=== PATIENT | male | born 1940 | race Caucasian/White ===

== ENCOUNTER 2016-11-26 11:01 | Emergency (ER) | payer MEDICARE ==
[2016-11-26] MEDS ORDERED: NORCO, ANEXSIA 5/325MG TABLET (HYDROcodone/ACETAMINOPHEN) As Ordered ONE (13:18)
[2016-11-26] MEDS ORDERED: ONDANSETRON 4 MG ORAL DISINTEGRATING TAB (S0181) As Ordered ONE (13:19)
--- NOTE | 2016-11-26 15:23 | REP ---
MRI LUMBAR SPINE WITHOUT CONTRAST: HISTORY: Back pain. Decreased signal intensity on T2-weighted images is present in the lumbar intervertebral discs. The discs are decreased in height. These findings are consistent with disc degeneration. A diffuse disc bulge is present at the L1-2 level. There is minimal compression of thecal sac. There is hypertrophy of the posterior articulating facets. The L1 nerves exit the neural foramina without compression. A diffuse disc bulge is present at the L2-3 level. There is minimal compression of the thecal sac. There is hypertrophy of the posterior articulating facts. The L2 nerves exit the neural foramina without compression. A diffuse disc bulge is present at the L3-4 level. There is hypertrophy of the ligamenta flava and posterior articulating facets. These findings produce mild central canal stenosis. There is posterolateral displacement of the right L3 nerve in the distal neural foramen. The left L3 nerve exits the neural foramen without compression. A diffuse disc bulge is present at the L4-5 level. There is hypertrophy of the ligamenta flava and posterior articulating facets. A 3 mm synovial cyst is present medial to the left L4-5 facet joint. These findings produce mild central canal stenosis. The L4 nerves exit the neural foramina without compression. A diffuse disc bulge is present at the L5-S1 level. There is minimal compression of the thecal sac. There is hypertrophy of the posterior articulating facets. There is compression of the L5 nerves in the neural foramina. The conus medullaris is normal in appearance terminating at the level of the T12-L1 intervertebral disc. Increased signal intensity is present in the endplates of the L3 and L4 vertebral bodies. This represents degenerative change. IMPRESSION: 1. Diffuse disc bulges at the L1-2, L2-3 and L5-S1 levels with minima thecal sac compression. There is compression of the L5 nerves in the neural foramina. 2. Mild central canal stenosis at the L3-4 level secondary to disc bulge, ligamentous and facet hypertrophy. 3. Mild central canal stenosis at the L4-5 level secondary to disc bulge, ligamentous and facet hypertrophy and a left synovial cyst. Signed by Andriy Hearn MD 11/26/2016 03:26 P
--- NOTE | 2016-11-26 16:06 | EDDOCDS ---
Nurse's Notes [facility] Name: Krunal Fofana Age: 76 yrs Sex: Male : 1940 Arrival Date: 11/26/2016 Time: 11:01 Bed TR7 Private MD: Alejandro Hunt A. 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 Pt denies actually falling denies bowel or bladder problems. Adult Sepsis Screening: The patient does not have new or worsening altered mentation. Patient's respiratory rate is less than 22. Systolic blood pressure is greater than 100. Patient has a qSOFA score of 0- Negative Sepsis Screen. Suicide/Homicide risk assessment- the patient denies having any suicidal and/or homicidal ideations and does not present with any other emotional, behavioral or mental health complaints. Status: Patient is not a food service worker hospital or dependent. Transition of care: patient was not received from another setting of care. 11:06 Acuity: ERNIE Level 3 dls 11:06 Method Of Arrival: Wheelchair dls Triage Assessment: 11:11 General: Appears uncomfortable, well developed, well nourished, well groomed, Behavior dls is cooperative. Pain: Pain currently is 6 out of 10 on a pain scale. Historical: - Allergies: no known allergies; - Home Meds: 1. Janumet XR oral Unknown oral 1 tab once daily 2. lisinopril 5 mg Oral tab 1 tab once daily 3. metformin 1,000 mg Oral tr24 1 tab once daily 4. lovastatin 20 mg Oral tab 1 tab once daily 5. aspirin 81 mg Oral tab 1 tab once daily 6. Eye Vitamin and Minerals 7,160-113-100 [id number] oral tab daily - PMHx: Diabetes - NIDDM: controlled; - PSHx: Tonsillectomy; - Social history: Smoking status: Patient uses tobacco products, light tobacco smoker. No barriers to communication noted, The patient speaks fluent Welsh. - Family history: Not pertinent. - : The pt / caregiver states he / she is not on anticoagulants. Home medication list is obtained from the patient. - Exposure Risk Screening:: None identified. Screenin:26 Screening information is obtained from the patient. Fall risk: At risk due to gait mk4 disturbance. Assistance ADL's: Requires assistance with. Abuse/DV Screen: The patient / caregiver reports he/she is: not in a situation that causes fear, pain or injury. Nutritional screening: No deficits noted. Advance Directives: Currently, there is no health care proxy. There is no active DNR order. There is no living will. There is no Power of Broadcast Operations Manager. Advance directive information has not previously been placed in an [facility] medical record. Further advance directive information is declined. home support is adequate. Assessment: 12:02 General: Appears uncomfortable. Pain: Location: left lower back and left gluteus mk4 rekha Pain radiates to lateral aspect of left thigh, lateral aspect of left knee and medial aspect of left thigh Pain began a week ago after strenuous lifting, getting worse. Neurological: Level of Consciousness is awake, alert. Respiratory: Airway is patent 13:42 General: Appears in no apparent distress, transferred to [facility] via w/c . [facility] 15:26 General: Appears in no apparent distress, was able to stand on left leg to transfer to [facility] bathroom, pt states pain improved left lower back and down left leg. Vital Signs: 11:02 BP 174 / 78; Pulse 94; Resp 18; Temp 97.6(O); Pulse Ox 97% on R/A; Weight 79.38 kg (R); ct3 Height 5 ft. 10 in. (177.80 cm) (R); Pain 7/10; 15:41 BP 147 / 72; Pulse 82; Resp 18; Temp 97.3(O); Pulse Ox 98% on R/A; Pain 2/10; ct3 11:02 Body Mass Index 25.11 (79.38 kg, 177.80 cm) ct3 ED Course: 11:02 Patient visited by Lay Ashraf PCA. ct3 11:02 Alejandro Hunt is Private Physician. ct3 11:02 Patient moved to Waiting ct3 11:03 Patient moved to Pre RCE ct3 11:08 Triage Initiated dls 12:02 Patient visited by Sara Kimbrough RN. mk4 12:02 Patient moved to Triage 1 [facility] 13:05 Jono Franco PA-C is PHCP. cc10 13:05 Della Denton MD is Attending Physician. cc10 13:05 Patient visited by Jono Franco PA-C. cc10 13:05 Patient visited by Jono Franco PA-C. cc10 13:07 [facility] Payment Agreement was scanned into [employer] and attached to record. mm15 13:12 Patient moved to PD2 mk4 13:38 Patient visited by Sara Kimbrough RN. mk4 14:27 Patient name changed from Hector\S\\S\Fofana\S\ to Hector\S\ \S\Fofana. EDMS 14:32 Patient visited by Sara Kimbrough RN. mk4 14:32 Patient moved to MRI mk4 14:51 Patient visited by Sara Kimbrough RN. mk4 14:52 Patient moved to PD2 mk4 15:25 Patient visited by Sara Kimbrough RN. mk4 15:32 -MRI-Spine, Lumbar without contrast Returned. EDMS 15:36 Lydia Heck is Referral Physician. cc10 15:37 Alejandro Hunt is Referral Physician. cc10 15:42 Patient visited by Lay Ashraf PCA. ct3 15:50 Patient moved to [address] Administered Medications: 13:21 Drug: Ondansetron ODT 4 mg [ondansetron 4 mg disintegrating tablet (1 tabs)] Route: PO; mk4 13:22 Drug: HYDROcodone-acetaminophen 1 tabs [hydrocodone 5 mg-acetaminophen 325 mg tablet (1 mk4 tabs)] Route: PO; Order Results: Radiology Order: -MRI-Spine, Lumbar without contrast Test: -MRI-Spine, Lumbar without contrast REASON FOR EXAMINATION: LBP, leg numbness; MRI LUMBAR SPINE WITHOUT CONTRAST:; ; HISTORY: Back pain.; ; Decreased signal intensity on T2-weighted images is present in the lumbar; intervertebral discs. The discs are decreased in height. These findings are; consistent with disc degeneration.; ; A diffuse disc bulge is present at the L1-2 level. There is minimal compression; of thecal sac. There is hypertrophy of the posterior articulating facets. The L1; nerves exit the neural foramina without compression.; ; A diffuse disc bulge is present at the L2-3 level. There is minimal compression; of the thecal sac. There is hypertrophy of the posterior articulating facts. The; L2 nerves exit the neural foramina without compression.; ; A diffuse disc bulge is present at the L3-4 level. There is hypertrophy of the; ligamenta flava and posterior articulating facets. These findings produce mild; central canal stenosis. There is posterolateral displacement of the right L3; nerve in the distal neural foramen. The left L3 nerve exits the neural foramen; without compression.; ; A diffuse disc bulge is present at the L4-5 level. There is hypertrophy of the; ligamenta flava and posterior articulating facets. A 3 mm synovial cyst is; present medial to the left L4-5 facet joint. These findings produce mild central; canal stenosis. The L4 nerves exit the neural foramina without compression.; ; A diffuse disc bulge is present at the L5-S1 level. There is minimal compression; of the thecal sac. There is hypertrophy of the posterior articulating facets.; There is compression of the L5 nerves in the neural foramina.; ; The conus medullaris is normal in appearance terminating at the level of the; T12-L1 intervertebral disc. Increased signal intensity is present in the; endplates of the L3 and L4 vertebral bodies. This represents degenerative; change.; ; IMPRESSION:; ; 1. Diffuse disc bulges at the L1-2, L2-3 and L5-S1 levels with minima thecal sac; compression. There is compression of the L5 nerves in the neural foramina.; ; 2. Mild central canal stenosis at the L3-4 level secondary to disc bulge,; ligamentous and facet hypertrophy.; ; 3. Mild central canal stenosis at the L4-5 level secondary to disc bulge,; ligamentous and facet hypertrophy and a left synovial cyst.; ; ; ; Unreviewed; Outcome: 15:37 Discharge ordered by Provider. cc10 16:05 Patient left the ED. mk4 Signatures: Dispatcher [employer] Ayla Lou RN RN kcs Scott, Debra, RN RN dls Lay Ashraf, PRAMOD ENVELOPE FOLDING MACHINE ADJUSTER ct3 Tanya Machado mm15 Sara Kimbrough RN RN mk4 Jono Franco, PA-C PA-C cc10 Corrections: (The following items were deleted from the chart) 14:40 13:42 General: Appears uncomfortable, mk4 mk4 JAGDISHD
--- NOTE | 2016-11-26 16:06 | EDDOCDS ---
Physician Documentation [facility] Name: Krunal Fofana Age: 76 yrs Sex: Male : 1940 Arrival Date: 11/26/2016 Time: 11:01 Bed TR7 Private MD: Alejandro Hunt A. Disposition: 11/26/16 15:37 Discharged to Home/Self Care. Impression: Intervertebral disc disorders with radiculopathy, lumbosacral region - L5. - Condition is Stable. - Discharge Instructions: Herniated Disk, Lumbosacral Radiculopathy. - Prescriptions for Hydrocodone- Acetaminophen 5-325 mg Oral Tablet - take 1 tablet by ORAL route every 6 hours As needed MDD: 4 tabs; 12 tablet. - Medication Reconciliation form. - Follow up: Lydia Heck; When: Call to arrange an appointment; Reason: Wound/Symptom Recheck, Recheck today's complaints, Worsening of conditions, Continuance of care. Follow up: Alejandro Hunt; When: 2 - 3 days; Reason: Wound/Symptom Recheck, Recheck today's complaints, Worsening of conditions, Continuance of care. - Problem is an ongoing problem. - Symptoms have improved. Historical: - Allergies: no known allergies; - Home Meds: 1. Janumet XR oral Unknown oral 1 tab once daily 2. lisinopril 5 mg Oral tab 1 tab once daily 3. metformin 1,000 mg Oral tr24 1 tab once daily 4. lovastatin 20 mg Oral tab 1 tab once daily 5. aspirin 81 mg Oral tab 1 tab once daily 6. Eye Vitamin and Minerals 7,160-113-100 [id number] oral tab daily - PMHx: Diabetes - NIDDM: controlled; - PSHx: Tonsillectomy; - Social history: Smoking status: Patient uses tobacco products, light tobacco smoker. No barriers to communication noted, The patient speaks fluent Hungarian. - Family history: Not pertinent. - : The pt / caregiver states he / she is not on anticoagulants. Home medication list is obtained from the patient. - Exposure Risk Screening:: None identified. Vital Signs: 11/26 11:02 BP 174 / 78; Pulse 94; Resp 18; Temp 97.6(O); Pulse Ox 97% on R/A; Weight 79.38 kg / ct3 175 lbs (R); Height 5 ft. 10 in. (177.80 cm) (R); Pain 7/10; 15:41 BP 147 / 72; Pulse 82; Resp 18; Temp 97.3(O); Pulse Ox 98% on R/A; Pain 2/10; ct3 11:02 Body Mass Index 25.11 (79.38 kg, 177.80 cm) ct3 MDM: 13:07 Financial registration complete. mm15 13:07 [facility] Payment Agreement was scanned into [employer] and attached to record. mm15 13:14 MRI Screening Tool - Place on chart, inform RN ordered. cc10 13:14 HYDROcodone-acetaminophen 5 mg-325 mg 1 tabs PO once ordered. cc10 13:15 Ondansetron ODT Oral Disintegrating Tablet 4 mg PO once ordered. cc10 13:15 -MRI-Spine, Lumbar without contrast Ordered. EDMS 13:19 MRI Screening Tool - Place on chart, inform RN complete. ct3 Administered Medications: 13:21 Drug: Ondansetron ODT 4 mg [ondansetron 4 mg disintegrating tablet (1 tabs)] Route: PO; mk4 13:22 Drug: HYDROcodone-acetaminophen 1 tabs [hydrocodone 5 mg-acetaminophen 325 mg tablet (1 mk4 tabs)] Route: PO; Signatures: Dispatcher [employer] EDMS Moni Aldrich, RN RN dls Lay Ashraf, THREAD TWISTER THREAD TWISTER ct3 Tanya Machado mm15 Sara Kimbrough RN RN mk4 Jono Franco, PA-C PA-C cc10 The chart was reviewed and I authenticate all verbal orders and agree with the evaluation and treatment provided.Attachments: 13:07 [facility] Payment Agreement mm15 MTDD
--- NOTE | 2016-11-28 17:06 | EDDOCDS ---
Nurse's Notes [facility] Name: Krunal Fofana Age: 76 yrs Sex: Male : 1940 Arrival Date: 11/26/2016 Time: 11:01 Bed TR7 Private MD: Alejandro Hunt A. 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 Pt denies actually falling denies bowel or bladder problems. Adult Sepsis Screening: The patient does not have new or worsening altered mentation. Patient's respiratory rate is less than 22. Systolic blood pressure is greater than 100. Patient has a qSOFA score of 0- Negative Sepsis Screen. Suicide/Homicide risk assessment- the patient denies having any suicidal and/or homicidal ideations and does not present with any other emotional, behavioral or mental health complaints. Status: Patient is not a technical services assistant or dependent. Transition of care: patient was not received from another setting of care. 11:06 Acuity: ERNIE Level 3 dls 11:06 Method Of Arrival: Wheelchair dls Triage Assessment: 11:11 General: Appears uncomfortable, well developed, well nourished, well groomed, Behavior dls is cooperative. Pain: Pain currently is 6 out of 10 on a pain scale. Historical: - Allergies: no known allergies; - Home Meds: 1. Janumet XR oral Unknown oral 1 tab once daily 2. lisinopril 5 mg Oral tab 1 tab once daily 3. metformin 1,000 mg Oral tr24 1 tab once daily 4. lovastatin 20 mg Oral tab 1 tab once daily 5. aspirin 81 mg Oral tab 1 tab once daily 6. Eye Vitamin and Minerals 7,160-113-100 [id number]-il-[id number] oral tab daily - PMHx: Diabetes - NIDDM: controlled; - PSHx: Tonsillectomy; - Social history: Smoking status: Patient uses tobacco products, light tobacco smoker. No barriers to communication noted, The patient speaks fluent Bruneian. - Family history: Not pertinent. - : The pt / caregiver states he / she is not on anticoagulants. Home medication list is obtained from the patient. - Exposure Risk Screening:: None identified. Screenin:26 Screening information is obtained from the patient. Fall risk: At risk due to gait mk4 disturbance. Assistance ADL's: Requires assistance with. Abuse/DV Screen: The patient / caregiver reports he/she is: not in a situation that causes fear, pain or injury. Nutritional screening: No deficits noted. Advance Directives: Currently, there is no health care proxy. There is no active DNR order. There is no living will. There is no Power of Fixing Machine Operator. Advance directive information has not previously been placed in an [facility] medical record. Further advance directive information is declined. home support is adequate. Assessment: 12:02 General: Appears uncomfortable. Pain: Location: left lower back and left gluteus mk4 rekha Pain radiates to lateral aspect of left thigh, lateral aspect of left knee and medial aspect of left thigh Pain began a week ago after strenuous lifting, getting worse. Neurological: Level of Consciousness is awake, alert. Respiratory: Airway is patent 13:42 General: Appears in no apparent distress, transferred to [facility] via w/c . [facility] 15:26 General: Appears in no apparent distress, was able to stand on left leg to transfer to [facility] bathroom, pt states pain improved left lower back and down left leg. Vital Signs: 11:02 BP 174 / 78; Pulse 94; Resp 18; Temp 97.6(O); Pulse Ox 97% on R/A; Weight 79.38 kg (R); ct3 Height 5 ft. 10 in. (177.80 cm) (R); Pain 7/10; 15:41 BP 147 / 72; Pulse 82; Resp 18; Temp 97.3(O); Pulse Ox 98% on R/A; Pain 2/10; ct3 11:02 Body Mass Index 25.11 (79.38 kg, 177.80 cm) ct3 ED Course: 11:02 Patient visited by Lay Ashraf PCA. ct3 11:02 Alejandro Hunt is Private Physician. ct3 11:02 Patient moved to Waiting ct3 11:03 Patient moved to Pre RCE ct3 11:08 Triage Initiated dls 12:02 Patient visited by Sara Kimbrough RN. mk4 12:02 Patient moved to Triage 1 [facility] 13:05 Jono Franco PA-C is PHCP. cc10 13:05 Della Denton MD is Attending Physician. cc10 13:05 Patient visited by Jono Franco PA-C. cc10 13:05 Patient visited by Jono Franco PA-C. cc10 13:07 [facility] Payment Agreement was scanned into [employer] and attached to record. mm15 13:12 Patient moved to PD mk4 13:38 Patient visited by Sara Kimbrough RN. mk4 14:27 Patient name changed from Hector\S\\S\Fofana\S\ to Hector\S\ \S\Fofana. EDMS 14:32 Patient visited by Sara Kimbrough RN. mk4 14:32 Patient moved to MRI mk4 14:51 Patient visited by Sara Kimbrough RN. mk4 14:52 Patient moved to PD mk4 15:25 Patient visited by Sara Kimbrough RN. mk4 15:32 -MRI-Spine, Lumbar without contrast Returned. EDMS 15:36 Lydia Heck is Referral Physician. cc10 15:37 Alejandro Hunt is Referral Physician. cc10 15:42 Patient visited by Lay Ashraf PCA. ct3 15:50 Patient moved to [address] 11/27 14:06 T-Sheet-- Draft Copy was scanned into [employer] and attached to record. gb Administered Medications: 11/26 13:21 Drug: Ondansetron ODT 4 mg [ondansetron 4 mg disintegrating tablet (1 tabs)] Route: PO; mk4 13:22 Drug: HYDROcodone-acetaminophen 1 tabs [hydrocodone 5 mg-acetaminophen 325 mg tablet (1 mk4 tabs)] Route: PO; Order Results: Radiology Order: -MRI-Spine, Lumbar without contrast Test: -MRI-Spine, Lumbar without contrast REASON FOR EXAMINATION: LBP, leg numbness; MRI LUMBAR SPINE WITHOUT CONTRAST:; ; HISTORY: Back pain.; ; Decreased signal intensity on T2-weighted images is present in the lumbar; intervertebral discs. The discs are decreased in height. These findings are; consistent with disc degeneration.; ; A diffuse disc bulge is present at the L1-2 level. There is minimal compression; of thecal sac. There is hypertrophy of the posterior articulating facets. The L1; nerves exit the neural foramina without compression.; ; A diffuse disc bulge is present at the L2-3 level. There is minimal compression; of the thecal sac. There is hypertrophy of the posterior articulating facts. The; L2 nerves exit the neural foramina without compression.; ; A diffuse disc bulge is present at the L3-4 level. There is hypertrophy of the; ligamenta flava and posterior articulating facets. These findings produce mild; central canal stenosis. There is posterolateral displacement of the right L3; nerve in the distal neural foramen. The left L3 nerve exits the neural foramen; without compression.; ; A diffuse disc bulge is present at the L4-5 level. There is hypertrophy of the; ligamenta flava and posterior articulating facets. A 3 mm synovial cyst is; present medial to the left L4-5 facet joint. These findings produce mild central; canal stenosis. The L4 nerves exit the neural foramina without compression.; ; A diffuse disc bulge is present at the L5-S1 level. There is minimal compression; of the thecal sac. There is hypertrophy of the posterior articulating facets.; There is compression of the L5 nerves in the neural foramina.; ; The conus medullaris is normal in appearance terminating at the level of the; T12-L1 intervertebral disc. Increased signal intensity is present in the; endplates of the L3 and L4 vertebral bodies. This represents degenerative; change.; ; IMPRESSION:; ; 1. Diffuse disc bulges at the L1-2, L2-3 and L5-S1 levels with minima thecal sac; compression. There is compression of the L5 nerves in the neural foramina.; ; 2. Mild central canal stenosis at the L3-4 level secondary to disc bulge,; ligamentous and facet hypertrophy.; ; 3. Mild central canal stenosis at the L4-5 level secondary to disc bulge,; ligamentous and facet hypertrophy and a left synovial cyst.; ; ; Signed by; Andriy Hearn MD 11/26/2016 03:26 P; Outcome: 15:37 Discharge ordered by Provider. cc10 16:05 Patient left the ED. mk4 Signatures: Dispatcher [employer] EDMS Ayla Garrison RN RN kcs Scott, Debra, RN RN dls Barnhardt, Gloria, Lay Peterson, CUSTOMER PROJECT MANAGER CUSTOMER PROJECT MANAGER ct3 Tanya Machado mm15 Sara Kimbrough, RN RN mk4 Jono Franco, ABDOULAYEC PAToniC cc10 Corrections: (The following items were deleted from the chart) 14:40 13:42 General: Appears uncomfortable, triston mk4 Chart Complete MTDD
--- NOTE | 2016-11-28 17:06 | EDDOCDS ---
Physician Documentation [facility] Name: Krunal Fofana Age: 76 yrs Sex: Male : 1940 Arrival Date: 11/26/2016 Time: 11:01 Bed TR7 Private MD: Alejandro Hunt A. Disposition: 11/26/16 15:37 Discharged to Home/Self Care. Impression: Intervertebral disc disorders with radiculopathy, lumbosacral region - L5. - Condition is Stable. - Discharge Instructions: Herniated Disk, Lumbosacral Radiculopathy. - Prescriptions for Hydrocodone- Acetaminophen 5-325 mg Oral Tablet - take 1 tablet by ORAL route every 6 hours As needed MDD: 4 tabs; 12 tablet. - Medication Reconciliation form. - Follow up: Lydia Heck; When: Call to arrange an appointment; Reason: Wound/Symptom Recheck, Recheck today's complaints, Worsening of conditions, Continuance of care. Follow up: Alejandro Hunt; When: 2 - 3 days; Reason: Wound/Symptom Recheck, Recheck today's complaints, Worsening of conditions, Continuance of care. - Problem is an ongoing problem. - Symptoms have improved. Historical: - Allergies: no known allergies; - Home Meds: 1. Janumet XR oral Unknown oral 1 tab once daily 2. lisinopril 5 mg Oral tab 1 tab once daily 3. metformin 1,000 mg Oral tr24 1 tab once daily 4. lovastatin 20 mg Oral tab 1 tab once daily 5. aspirin 81 mg Oral tab 1 tab once daily 6. Eye Vitamin and Minerals 7,160-113-100 [id number] oral tab daily - PMHx: Diabetes - NIDDM: controlled; - PSHx: Tonsillectomy; - Social history: Smoking status: Patient uses tobacco products, light tobacco smoker. No barriers to communication noted, The patient speaks fluent Albanian. - Family history: Not pertinent. - : The pt / caregiver states he / she is not on anticoagulants. Home medication list is obtained from the patient. - Exposure Risk Screening:: None identified. Vital Signs: 11/26 11:02 BP 174 / 78; Pulse 94; Resp 18; Temp 97.6(O); Pulse Ox 97% on R/A; Weight 79.38 kg / ct3 175 lbs (R); Height 5 ft. 10 in. (177.80 cm) (R); Pain 7/10; 15:41 BP 147 / 72; Pulse 82; Resp 18; Temp 97.3(O); Pulse Ox 98% on R/A; Pain 2/10; ct3 11:02 Body Mass Index 25.11 (79.38 kg, 177.80 cm) ct3 MDM: 13:07 Financial registration complete. mm15 13:07 [facility] Payment Agreement was scanned into [employer] and attached to record. mm15 13:14 MRI Screening Tool - Place on chart, inform RN ordered. cc10 13:14 HYDROcodone-acetaminophen 5 mg-325 mg 1 tabs PO once ordered. cc10 13:15 Ondansetron ODT Oral Disintegrating Tablet 4 mg PO once ordered. cc10 13:15 -MRI-Spine, Lumbar without contrast Ordered. EDMS 13:19 MRI Screening Tool - Place on chart, inform RN complete. ct3 11/27 14:06 T-Sheet-- Draft Copy was scanned into [employer] and attached to record. gb Administered Medications: 11/26 13:21 Drug: Ondansetron ODT 4 mg [ondansetron 4 mg disintegrating tablet (1 tabs)] Route: PO; mk4 13:22 Drug: HYDROcodone-acetaminophen 1 tabs [hydrocodone 5 mg-acetaminophen 325 mg tablet (1 mk4 tabs)] Route: PO; Signatures: Dispatcher [employer] EDMS Moni Aldrich RN RN dls Joan Miller, Reg Reg gb Pascale, Lay, SERVICE CORRESPONDENT SERVICE CORRESPONDENT ct3 Tanya Machado mm15 Sara Kimbrough RN RN mk4 Jono Franco PA-C PAYandel cc10 The chart was reviewed and I authenticate all verbal orders and agree with the evaluation and treatment provided.Attachments: 13:07 [facility] Payment Agreement mm15 11/27 14:06 T-Sheet-- Draft Copy gb Chart Complete MTDD
--- NOTE | 2016-11-28 17:06 | EDDOCDS ---
Physician Documentation [facility] Name: Krunal Fofana Age: 76 yrs Sex: Male : 1940 Arrival Date: 11/26/2016 Time: 11:01 Bed TR7 Private MD: Alejandro Hunt A. Disposition: 11/26/16 15:37 Discharged to Home/Self Care. Impression: Intervertebral disc disorders with radiculopathy, lumbosacral region - L5. - Condition is Stable. - Discharge Instructions: Herniated Disk, Lumbosacral Radiculopathy. - Prescriptions for Hydrocodone- Acetaminophen 5-325 mg Oral Tablet - take 1 tablet by ORAL route every 6 hours As needed MDD: 4 tabs; 12 tablet. - Medication Reconciliation form. - Follow up: Lydia Heck; When: Call to arrange an appointment; Reason: Wound/Symptom Recheck, Recheck today's complaints, Worsening of conditions, Continuance of care. Follow up: Alejandro Hunt; When: 2 - 3 days; Reason: Wound/Symptom Recheck, Recheck today's complaints, Worsening of conditions, Continuance of care. - Problem is an ongoing problem. - Symptoms have improved. Historical: - Allergies: no known allergies; - Home Meds: 1. Janumet XR oral Unknown oral 1 tab once daily 2. lisinopril 5 mg Oral tab 1 tab once daily 3. metformin 1,000 mg Oral tr24 1 tab once daily 4. lovastatin 20 mg Oral tab 1 tab once daily 5. aspirin 81 mg Oral tab 1 tab once daily 6. Eye Vitamin and Minerals 7,160-113-100 [id number] oral tab daily - PMHx: Diabetes - NIDDM: controlled; - PSHx: Tonsillectomy; - Social history: Smoking status: Patient uses tobacco products, light tobacco smoker. No barriers to communication noted, The patient speaks fluent Slovak. - Family history: Not pertinent. - : The pt / caregiver states he / she is not on anticoagulants. Home medication list is obtained from the patient. - Exposure Risk Screening:: None identified. Vital Signs: 11/26 11:02 BP 174 / 78; Pulse 94; Resp 18; Temp 97.6(O); Pulse Ox 97% on R/A; Weight 79.38 kg / ct3 175 lbs (R); Height 5 ft. 10 in. (177.80 cm) (R); Pain 7/10; 15:41 BP 147 / 72; Pulse 82; Resp 18; Temp 97.3(O); Pulse Ox 98% on R/A; Pain 2/10; ct3 11:02 Body Mass Index 25.11 (79.38 kg, 177.80 cm) ct3 MDM: 13:07 Financial registration complete. mm15 13:07 [facility] Payment Agreement was scanned into [employer] and attached to record. mm15 13:14 MRI Screening Tool - Place on chart, inform RN ordered. cc10 13:14 HYDROcodone-acetaminophen 5 mg-325 mg 1 tabs PO once ordered. cc10 13:15 Ondansetron ODT Oral Disintegrating Tablet 4 mg PO once ordered. cc10 13:15 -MRI-Spine, Lumbar without contrast Ordered. EDMS 13:19 MRI Screening Tool - Place on chart, inform RN complete. ct3 11/27 14:06 T-Sheet-- Draft Copy was scanned into [employer] and attached to record. gb Administered Medications: 11/26 13:21 Drug: Ondansetron ODT 4 mg [ondansetron 4 mg disintegrating tablet (1 tabs)] Route: PO; mk4 13:22 Drug: HYDROcodone-acetaminophen 1 tabs [hydrocodone 5 mg-acetaminophen 325 mg tablet (1 mk4 tabs)] Route: PO; Signatures: Dispatcher [employer] EDMS Moni Aldrich RN RN dls Joan Miller, Reg Reg gb Pascale, Lay, TOXICOLOGY SUPERVISOR TOXICOLOGY SUPERVISOR ct3 Tanya Machado mm15 Sara Kimbrough RN RN mk4 Jono Franco PA-C PAYandel cc10 The chart was reviewed and I authenticate all verbal orders and agree with the evaluation and treatment provided.Attachments: 13:07 [facility] Payment Agreement mm15 11/27 14:06 T-Sheet-- Draft Copy gb Chart Complete MTDD
== END 2016-11-26 16:05 | disposition home or self-care (01) ==
LOC: M ED 11:01
DX: M51.16 Intervertebral disc disorders with radiculopathy, lumbar region (principal); E11.9 Type 2 diabetes mellitus without complications; Z79.899 Other long term (current) drug therapy; Z79.84 Long term (current) use of oral hypoglycemic drugs; Z79.82 Long term (current) use of aspirin; F17.210 Nicotine dependence, cigarettes, uncomplicated

== ENCOUNTER → 2017-10-11 | Outpatient (CLI) | payer MEDICARE ==
[2017-10-11 11:45] LABS: BASO # 0.1 10^3/uL (0.0-0.2); BASO % 0.7 % (0.0-1.0); EOS % 0.2 % (0.0-3.0); IMMATURE GRANULOCYTE % 0.5 % (0-0); LYMPH # 1.7 10^3/uL (1.5-4.5); LYMPH % 21.1 % (24.0-44.0); MEAN CORPUSCULAR HEMOGLOBIN 31.6 pg (27.0-33.0); MEAN CORPUSCULAR VOLUME 90.3 fl (80.0-96.0); MONO # 0.7 10^3/uL (0.0-0.8); NEUTROPHILS # 5.6 10^3/uL (1.8-7.7); NEUTROPHILS % 68.5 % (36.0-66.0); PLATELET COUNT, AUTOMATED 239 10^3/uL (150-450); RED CELL DISTRIBUTION WIDTH 12.7 % (11.5-14.5); WHITE BLOOD COUNT 8.2 10^3/uL (4.0-10.0)
[2017-10-11 12:04] LABS: ALBUMIN 3.5 GM/DL (3.2-5.2); ALBUMIN/GLOBULIN RATIO 1.06 (1.00-1.93); ALKALINE PHOSPHATASE 96 U/L (45-117); ALT/SGPT 41 U/L (12-78); ANION GAP 8 MEQ/L (8-16); AST/SGOT 26 U/L (7-37); BILIRUBIN,TOTAL 0.6 MG/DL (0.2-1.0); BLOOD UREA NITROGEN 21 MG/DL (7-18); CALCIUM LEVEL 9.1 MG/DL (8.8-10.2); CARBON DIOXIDE LEVEL 28 MEQ/L (21-32); CHLORIDE LEVEL 105 MEQ/L (98-107); CHOLESTEROL LEVEL 118 MG/DL (<200); CREATININE FOR GFR 1.03 MG/DL (0.70-1.30); ESTIMATED AVERAGE GLUCOSE 143 MG/DL (60-110); GLOMERULAR FILTRATION RATE > 60.0 (>42); GLUCOSE, FASTING 151 MG/DL (83-110); POTASSIUM SERUM 4.7 MEQ/L (3.5-5.1); SODIUM LEVEL 141 MEQ/L (136-145); TOTAL PROTEIN 6.8 GM/DL (6.4-8.2); TRIGLYCERIDES LEVEL 77 MG/DL (<150)
== END ==
LOC: M WUC 08:16
DX: E11.9 Type 2 diabetes mellitus without complications (principal)
CPT/HCPCS: 80053